=== PATIENT | male | born 2000 | race Hispanic/Latino ===

== ENCOUNTER → 2021-11-20 | Outpatient (CLI) | payer OTHER ==
--- NOTE | 2021-11-20 18:26 | DIREP ---
PROCEDURE:XRAY HIP 1 VW-LT COMPARISON:None. INDICATIONS:Radiologic examination, hip, unilateral FINDINGS: BONES:Normal. JOINTS:Normal. SOFT TISSUES:Normal. OTHER:No additional findings. CONCLUSION:Normal examination. Dictated by: Dontae Nj MD on 11/20/2021 at 06:24 PM
== END | disposition home or self-care (01) ==
LOC: RAD 08:00 → EDSTATUS 12-28 15:31
PROVIDERS: ATTEND Nurse Practitioner
DX: Z00.00 Encounter for general adult medical examination without abnormal findings (principal)
CPT/HCPCS: 73501; 73500-LT